=== PATIENT | female | born 1940 | race Caucasian/White ===

== ENCOUNTER 2022-11-27 18:34 | Inpatient (IN) | payer MEDICARE ==
[~2022-11-27] VITALS: Ht 157.5 cm; Wt 52.6 kg
--- NOTE | 2022-11-27 18:48 | NUR ---
Nursing-Admitted an 82 years old female from [facility] via ambulance . Report received from Shasha ROSAS . Patient suffered a mechanical floor at home ,undergone right hip bipolar replacement by DR Cooley . Alert , oriented x 4, adequate support from her family , lives with her in one level home with few steps to get inside. Saline lock left hand intact, no redness noted. per report, patient is weight bearing as tolerated . Right hip surgical dressing with dressing intact, no drainage noted . Right hip precaution reviewed , in progress, patient verbalized understanding. Oriented to unit settings, routine admission care .
[2022-11-27 19:06] VITALS: BP 106/47; TEMP 99.3; O2SAT 94
[2022-11-27] MEDS ORDERED: ENOX40DI SUBCUT (19:31)
[2022-11-27] MEDS ORDERED: CHOL100062 PO (19:31)
[2022-11-27] MEDS ORDERED: HYDR-3980 PO (19:31)
[2022-11-27] MEDS ORDERED: FERR-68 PO (19:31)
[2022-11-27 20:00] VITALS: BP 94/41; TEMP 98; O2SAT 92
--- NOTE | 2022-11-27 20:00 | NUR ---
nsg: received patient lying in bed plesant upon approach. f/c patent and draining yellow urine. abduction pillow in place. denies pain and discomfort at this time. family at with side. assisted with adl's. call light w/in reach.
--- NOTE | 2022-11-28 01:00 | NUR ---
nsg: patient resting in bed comfortably. no sign of acute distress noted. abduction pillow in place. call light w/in reach.
[2022-11-28 04:00] VITALS: BP 122/52; TEMP 98.4; O2SAT 96
--- NOTE | 2022-11-28 04:21 | NUR ---
nsg: mrsa swab sent to lab.
[2022-11-28 07:30] VITALS: BP 132/57; TEMP 99.2; O2SAT 93
[2022-11-28] MEDS ORDERED: HYDR25TA4 PO (08:17)
[2022-11-28] MEDS ORDERED: [UNRECOGNIZED DRUG - CODE] PO (08:17)
[2022-11-28] MEDS: HYDROCODONE/APAP 10-325 MG TABLET PO PRN (08:31)
[2022-11-28] MEDS: FERROUS SULFATE 325 MG TABEC PO SCH ×3 (08:31→17:00)
[2022-11-28] MEDS: ENOXAPARIN SODIUM 40 MG/0.4 ML DISP.SYRIN SQ SCH (08:34)
[2022-11-28 16:11] VITALS: BP 116/71; TEMP 99; O2SAT 96
--- NOTE | 2022-11-28 16:36 | NUR ---
Patient is awake in bed. She is alert and oriented x4, verbal able to make her needs known. Breathing on room air. She denies pain when asked. Respiration even unable with no distress nor discomfort noted. Patient came in for s/p right hip bipolar replacement. She is full code with allergies of penicillin and atropine. Morning medications given, taken whole. She is on cardiac diet. patient was able to have few steps with PT. Family members at her bedside. she is comfortable currently. Will continue to monitor.
[2022-11-28] MEDS: DOCUSATE SODIUM 100 MG CAPSULE PO SCH (20:50)
[2022-11-29 06:22] VITALS: BP 129/58; TEMP 98.2; O2SAT 99
[2022-11-29] MEDS: HYDROCODONE/APAP 10-325 MG TABLET PO PRN ×2 (06:27→15:30)
[2022-11-29 07:30] VITALS: BP 114/44; TEMP 98.8; O2SAT 96
[2022-11-29] MEDS: FERROUS SULFATE 325 MG TABEC PO SCH ×3 (09:00→17:00)
[2022-11-29] MEDS: ENOXAPARIN SODIUM 40 MG/0.4 ML DISP.SYRIN SQ SCH (09:26)
[2022-11-29] MEDS ORDERED: SENNOSIDES 1 TABLET PO ONE (13:00)
[2022-11-29 16:42] VITALS: BP 138/48; TEMP 99.2; O2SAT 95
[2022-11-29] MEDS: ENSURE ENLIVE (VAN) 240 ML LIQUID PO SCH (17:13)
[2022-11-29 19:52] VITALS: BP 115/41; TEMP 98.1; O2SAT 91
[2022-11-29] MEDS: DOCUSATE SODIUM 100 MG CAPSULE PO SCH (20:16)
[2022-11-29] MEDS: SENNOSIDES 1 TABLET PO SCH (20:17)
[2022-11-30 04:05] VITALS: BP 136/46; TEMP 98.5; O2SAT 94
[2022-11-30] MEDS: HYDROCODONE/APAP 10-325 MG TABLET PO PRN (04:20)
[2022-11-30 07:52] VITALS: BP 124/55; TEMP 98.5; O2SAT 94
[2022-11-30] MEDS: ENSURE ENLIVE (VAN) 240 ML LIQUID PO SCH ×2 (08:53→16:34)
[2022-11-30] MEDS: ENOXAPARIN SODIUM 40 MG/0.4 ML DISP.SYRIN SQ SCH (08:56)
[2022-11-30] MEDS: FERROUS SULFATE 325 MG TABEC PO SCH ×3 (08:56→16:34)
[2022-11-30] MEDS ORDERED: ACETAMINOPHEN 325 MG TABLET PO PRN (09:30)
[2022-11-30] MEDS: ACETAMINOPHEN ES 500 MG TABLET PO PRN ×3 (10:02→23:55)
--- NOTE | 2022-11-30 14:47 | NUR ---
INDIVIDUALIZED PLAN OF CARE
[2022-11-30 15:15] VITALS: BP 136/48; TEMP 98.5; O2SAT 96
[2022-11-30] MEDS: SENNOSIDES 1 TABLET PO SCH (20:13)
[2022-11-30] MEDS: DOCUSATE SODIUM 100 MG CAPSULE PO SCH (20:13)
[2022-11-30 21:21] VITALS: BP 119/42; TEMP 99.2; O2SAT 93
[2022-12-01 04:13] VITALS: BP 148/57; TEMP 98; O2SAT 93
--- NOTE | 2022-12-01 04:22 | NUR ---
AAOx4 All needs attended. Admitted for bipolar right hip replacement. Right dressing clean dry and intact, radha in placed. VSS Continent of bowel and bladder. No BM noted this shift. Will monitor patient. Medicated with Tylenol as needed.
[2022-12-01 07:10] LABS: HEMATOCRIT 25.4 % (31.2-41.9); MEAN CORPUSCULAR HEMOGLOBIN 28.8 uug (24.7-32.8); MEAN CORPUSCULAR VOLUME 84.1 fL (75.5-95.3); PLATELET COUNT (AUTO) 398 K/uL (179-408)
[2022-12-01 07:30] LABS: THYROID STIMULATING HORMONE 1.614 mIU/mL (0.358-3.740)
[2022-12-01 07:43] VITALS: BP 126/58; TEMP 98.4; O2SAT 97
[2022-12-01] MEDS: ENSURE ENLIVE (VAN) 240 ML LIQUID PO SCH ×2 (08:00→08:16)
[2022-12-01 08:04] LABS: ALANINE AMINOTRANSFERASE 60 U/L (14-59); ALKALINE PHOSPHATASE 88 U/L (50-136); ASPARTATE AMINOTRANSFERASE 62 U/L (15-37); BILIRUBIN,TOTAL 0.6 mg/dL (0.2-1.0); CARBON DIOXIDE 28 mmol/L (21-32); CHLORIDE 103 mmol/L (98-107); CHOLESTEROL 121 mg/dL (<200); CREATININE 0.8 mg/dL (0.6-1.3); HDL CHOLESTEROL 44 mg/dL (40-60); PHOSPHOROUS 3.8 mg/dL (2.5-4.9); POTASSIUM 4.2 mmol/L (3.5-5.1); TOTAL PROTEIN, SERUM 5.9 g/dL (6.4-8.2); TRIGLYCERIDES 76 MG/DL (30-150); UREA NITROGEN, BLOOD 17 mg/dL (7-18)
[2022-12-01] MEDS: FERROUS SULFATE 325 MG TABEC PO SCH ×2 (08:16→08:21)
[2022-12-01] MEDS: ENOXAPARIN SODIUM 40 MG/0.4 ML DISP.SYRIN SQ SCH (08:17)
[2022-12-01 08:41] LABS: IRON, SERUM 24 ug/dL (50-175)
[2022-12-01 10:03] LABS: MAGNESIUM 2.2 mg/dL (1.8-2.4)
[2022-12-01] MEDS: ACETAMINOPHEN ES 500 MG TABLET PO PRN ×2 (11:36→20:39)
--- NOTE | 2022-12-01 13:10 | NUR ---
INTERDISCIPLINARY TEAM CONFERENCE
--- NOTE | 2022-12-01 13:12 | NUR ---
INTERDISCIPLINARY TEAM CONFERENCE
[2022-12-01 15:04] VITALS: BP 106/53; TEMP 98.2; O2SAT 95
[2022-12-01 20:00] VITALS: BP 136/57; TEMP 98.1; O2SAT 98
[2022-12-01] MEDS: DOCUSATE SODIUM 100 MG CAPSULE PO SCH (20:21)
[2022-12-02 04:00] VITALS: BP 144/59; TEMP 98; O2SAT 97
--- NOTE | 2022-12-02 04:09 | NUR ---
Received patient awake in bed. Alert and oriented x4. All needs attended. Call lights within the reach. @2239, Tylenol Es 500mg tab was given for pain as needed and refused to take Colace medication for 2100 meds. Checked patient Q1HR. Patient resting in bed comfortably. No sign of acute distress. Right hip dressing is intact. Fall precaution implemented. Will continue with care.
[2022-12-02] MEDS: ACETAMINOPHEN ES 500 MG TABLET PO PRN ×2 (05:06→20:28)
[2022-12-02] MEDS: ENOXAPARIN SODIUM 40 MG/0.4 ML DISP.SYRIN SQ SCH (08:08)
[2022-12-02 08:33] VITALS: BP 140/55; TEMP 97.8; O2SAT 96
--- NOTE | 2022-12-02 15:15 | NUR ---
patient is alert, oriented x4, no sob, respirations are even nonlabored, skin warm and dry to touch, patient is able to ambulate with front wheel walker, only requires supervision. no acute distress noted. patient is status post right hip bipolar hip replacement, dressing intact, and dry. pain is well managed with nonpharmacological interventions and with Tylenol.
[2022-12-02 16:20] VITALS: BP 126/46; TEMP 98.1; O2SAT 98
[2022-12-02] MEDS: DOCUSATE SODIUM 100 MG CAPSULE PO SCH (20:42)
[2022-12-02 20:44] VITALS: BP 138/50; TEMP 99.2; O2SAT 93
--- NOTE | 2022-12-03 03:22 | NUR ---
Quiet night. AAox4 OOB with walker to the BR. Voiding well. BM noted this shift.Refused to take colace, says she have a BM already. Medicated with Tylenol as needed for pain on back and right hip with relief noted. Fall precautions maintained. Call cartwright within reach. No acute distress noted. VSS.
[2022-12-03 04:03] VITALS: BP 128/51; TEMP 98.4; O2SAT 95
[2022-12-03] MEDS: ENOXAPARIN SODIUM 40 MG/0.4 ML DISP.SYRIN SQ SCH (07:31)
[2022-12-03 07:32] VITALS: BP 135/53; TEMP 98; O2SAT 94
[2022-12-03] MEDS ORDERED: ONDANSETRON ODT 4 MG TAB.RAPDIS SL PRN (07:45)
[2022-12-03] MEDS: ACETAMINOPHEN ES 500 MG TABLET PO PRN ×2 (11:16→20:36)
[2022-12-03 16:00] VITALS: BP 107/47; TEMP 97.9; O2SAT 96
[2022-12-03 20:05] VITALS: BP 107/42; TEMP 98.4; O2SAT 93
[2022-12-04 04:00] VITALS: BP 132/50; TEMP 98; O2SAT 93
[2022-12-04] MEDS: ACETAMINOPHEN ES 500 MG TABLET PO PRN ×2 (07:10→21:21)
--- NOTE | 2022-12-04 07:36 | NUR ---
no events noted overnight.
--- NOTE | 2022-12-04 07:45 | NUR ---
right hip incision is dry and clean, well approximated, radha intact.
[2022-12-04 08:00] VITALS: BP 129/57; TEMP 98.7; O2SAT 97
[2022-12-04] MEDS: ENOXAPARIN SODIUM 40 MG/0.4 ML DISP.SYRIN SQ SCH ×2 (09:00→10:17)
[2022-12-04 16:10] VITALS: BP 113/45; TEMP 98.4; O2SAT 96
[2022-12-04 20:00] VITALS: BP 120/72; TEMP 98.1; O2SAT 97
--- NOTE | 2022-12-05 03:16 | NUR ---
Pt been in stable condition, vital signs within normal level, asked for Tylenol x 1, helped to bathroom x 3. All needs are attended and met.
[2022-12-05 04:00] VITALS: BP 110/61; TEMP 98; O2SAT 96
[2022-12-05 08:05] VITALS: BP 141/57; TEMP 97.7; O2SAT 94
[2022-12-05] MEDS: ACETAMINOPHEN ES 500 MG TABLET PO PRN ×2 (08:50→22:00)
[2022-12-05 16:20] VITALS: BP 125/50; TEMP 97.9; O2SAT 95
[2022-12-05 20:00] VITALS: BP 130/54; TEMP 98.2; O2SAT 96
[2022-12-06 04:00] VITALS: BP 131/51; TEMP 98.3; O2SAT 96
[2022-12-06] MEDS: ACETAMINOPHEN ES 500 MG TABLET PO PRN ×2 (06:48→20:05)
[2022-12-06 07:56] VITALS: BP 117/45; TEMP 98.1; O2SAT 97
--- NOTE | 2022-12-06 08:00 | NUR ---
Received patient lying in bed, awake, alert and oriented. No signs of distress, no SOB, no complaint. Vital signs taken and recorded. Due medications taken and tolerated. Patient seen by physial therapist, ambulates using the walker. Morning care done. Observed accordingly, needs attended.
[2022-12-06 16:33] VITALS: BP 119/49; TEMP 98.5; O2SAT 98
[2022-12-06 19:41] VITALS: BP 133/44; TEMP 98.7; O2SAT 96
--- NOTE | 2022-12-06 20:00 | NUR ---
RECEIVED PATIENT AWAKE IN BED. C/O MILD DISCOMFORT. GIVEN TYLENOL 650MG PO PRN REQUESTED PER PATIENT. VS WNL. CALL LIGHT IN REACH. ALL NEEDS ATTENDED. WILL CONTINUE TO MONITOR AND ASSESS.
[2022-12-07 04:00] VITALS: BP 121/49; TEMP 98.3; O2SAT 95
[2022-12-07 07:54] VITALS: BP 126/48; TEMP 98.6; O2SAT 96
[2022-12-07] MEDS: ACETAMINOPHEN ES 500 MG TABLET PO PRN ×2 (11:29→20:15)
[2022-12-07 15:56] VITALS: BP 110/44; TEMP 98.4; O2SAT 97
--- NOTE | 2022-12-07 17:31 | NUR ---
Shift Note: Patient has remained alert, oriented x4. No sob, respirations are even nonlabored. Skin warm and dry to touch. Tolerating diet well. Remains continent of bowel and bladder. Patient is able to ambulate with front wheel walker, only requires supervision. No acute distress noted. Patient is status post right hip bipolar hip replacement, with dressing c/d/i. Participated well with PT. Pain is well managed with nonpharmacological interventions and Tylenol.
[2022-12-07 20:17] VITALS: BP 121/45; TEMP 98.7; O2SAT 97
[2022-12-08 04:08] VITALS: BP 130/47; TEMP 98.7; O2SAT 97
--- NOTE | 2022-12-08 04:29 | NUR ---
AAOx4 Ambulates with walker to the BR. Voiding ok. No acute distress noted. Right hip incision with radha intact. Medicated with tylenol as neded. Fall precautions maintained.Siderail up for safety. Will monitor patient.VSS
[2022-12-08 07:45] VITALS: BP 115/42; TEMP 98.4; O2SAT 97
--- NOTE | 2022-12-08 08:40 | NUR ---
in bed resting, oriented x 4, right hip dsg dry and intact, medicated with tylenol ES itab for right hip pain, call light within reach
[2022-12-08] MEDS: ACETAMINOPHEN ES 500 MG TABLET PO PRN ×2 (08:43→21:05)
--- NOTE | 2022-12-08 12:14 | NUR ---
INTERDISCIPLINARY TEAM CONFERENCE
[2022-12-08 15:42] VITALS: BP 105/45; TEMP 98.2; O2SAT 95
--- NOTE | 2022-12-08 17:00 | NUR ---
radha removed on the left hip incision, clean and dry, applied betadine on site and placed a new bordered gauze dressing. Addendum: 12/08/22 at 1745 by DUNG ROACH RN radha removed on right hip incision
--- NOTE | 2022-12-08 18:25 | NUR ---
resting in bed, participated well with rehab, all needs attended and met, call light within reach, safety measures in place
[2022-12-08 20:00] VITALS: BP 130/55; TEMP 97.6; O2SAT 98
[2022-12-09 06:01] VITALS: BP 145/56; TEMP 98; O2SAT 98
--- NOTE | 2022-12-09 08:00 | NUR ---
resting in bed, states feels good, happy disposition, ambulated to BR with walker, denies of pain, tolerated well, breakfast served, right hip dsg dry and intact, heels off loaded with pillow, no redness noted, call light within reach
[2022-12-09 08:01] VITALS: BP 128/45; TEMP 98; O2SAT 98
[2022-12-09] MEDS: ACETAMINOPHEN ES 500 MG TABLET PO PRN ×2 (12:51→20:51)
[2022-12-09 15:44] VITALS: BP 113/43; TEMP 98; O2SAT 99
--- NOTE | 2022-12-09 17:54 | NUR ---
Patient is alert, oriented x4. no distress noted, tolerating diet well. Remains continent of bowel and bladder,ambulated with front wheel walker, with standby supervision. No acute distress noted. right hip dressing c/d/i. Participated well with PT. Pain is well managed with nonpharmacological interventions and Tylenol.
[2022-12-09 20:00] VITALS: BP 120/48; TEMP 98.9; O2SAT 95
[2022-12-10 04:00] VITALS: BP 114/57; TEMP 97.8; O2SAT 98
[2022-12-10 07:46] VITALS: BP 115/42; TEMP 97.6; O2SAT 97
--- NOTE | 2022-12-10 08:00 | NUR ---
Received patient lying in bed awake, alert and oriented. No signs of distress, no . Vital signs taken and recorded. Patient complaining of pain, Tylenol 500mg tablet given as ordered. Patient was seen by PT ambulates using the walker. Observed accordingly needs attended.
[2022-12-10] MEDS: ACETAMINOPHEN ES 500 MG TABLET PO PRN ×2 (08:24→20:20)
[2022-12-10 11:31] VITALS: BP 104/50; TEMP 97.8; O2SAT 98
--- NOTE | 2022-12-10 13:41 | NUR ---
Seen patient comfortably lying in bed. Seen and examined by Dr. Steel
[2022-12-10 16:00] VITALS: BP 133/58; TEMP 97.6; O2SAT 98
[2022-12-10 20:00] VITALS: BP 119/44; TEMP 97.8; O2SAT 96
[2022-12-11 04:35] VITALS: BP 134/59; TEMP 97.1; O2SAT 94
--- NOTE | 2022-12-11 05:11 | NUR ---
Slept well most of the shift. Ambulates to the BR with walker to the BR. Voiding without difficulty. BM noted this shift. Possible d/c today. VSS.
[2022-12-11 08:36] VITALS: BP 108/48; TEMP 97.8; O2SAT 97
--- NOTE | 2022-12-11 13:51 | NUR ---
PT BEING DISCHARGED TO HOME: Pt left unit via WC with [employer] and security representative from her [employer] company. Pt VSS, no s/s of distress or SOB at this time. Pt had all belongings, valuables and clothes. Discharge teaching done via teach back method. All questions answered at this time. Pt stated, "Thank you and please thank everyone for me."
== END 2022-12-11 14:00 | disposition home health service (06) | DRG 559 ==
PROVIDERS: ADMIT Physical Medicine & Rehabilitation Pain Medicine; ATTEND Physical Medicine & Rehabilitation Pain Medicine
DX: S72.001D Fracture of unspecified part of neck of right femur, subsequent encounter for closed fracture with routine healing (principal); E43 Unspecified severe protein-calorie malnutrition; D68.59 Other primary thrombophilia; W18.30XD Fall on same level, unspecified, subsequent encounter; E88.09 Other disorders of plasma-protein metabolism, not elsewhere classified; K59.00 Constipation, unspecified; D50.9 Iron deficiency anemia, unspecified; Z88.0 Allergy status to penicillin; Z88.8 Allergy status to other drugs, medicaments and biological substances; Z96.641 Presence of right artificial hip joint
CPT/HCPCS: 36415; 73501; 83550; 83735; 84100; 84443; 85025; 97535-GO-CO; A6209; A9150; J1650; Q0162